=== PATIENT | female | born 1990 | race Caucasian/White ===

== ENCOUNTER → 2020-05-19 | Outpatient (CLI) | payer BC ==
[~2020-05-19] MED LIST: OMNIPAQUE 350 MG/ML, 100ML BOTTLE ONE
== END | disposition home or self-care (01) ==
LOC: EDSTATUS 05-01 10:45 → CFH 13:29 → EDSTATUS 13:45
PROVIDERS: ATTEND Registered Nurse
DX: G43.109 Migraine with aura, not intractable, without status migrainosus (principal)
CPT/HCPCS: 36415; 70470; 84703; Q9967